=== PATIENT | female | born 1995 | race Caucasian/White ===

== ENCOUNTER 2017-07-16 23:16 | Emergency (ER) | payer BC ==
[~2017-07-16] VITALS: Ht 157.5 cm; Wt 81.8 kg
[2017-07-16 23:44] VITALS: Ht 157.5 cm; Wt 81.8 kg
[2017-07-17 00:02] LABS: APPEARANCE CLEAR (CLEAR); BILIRUBIN NEGATIVE (NEGATIVE); COLOR YELLOW (YELLOW); GLUCOSE NEGATIVE (NEGATIVE); HCG URINE NEGATIVE (NEGATIVE); KETONE SMALL mg/dL (NEGATIVE); NITRITE NEGATIVE (NEGATIVE); PROTEIN NEGATIVE (NEGATIVE); SPECIFIC GRAVITY 1.015 (1.005-1.020); UROBILINOGEN NORMAL (NORMAL)
[2017-07-17] MEDS ORDERED: IBUPROFEN800 MG PO (01:20)
[2017-07-17] MEDS ORDERED: FLAGYL500 MG PO (01:20)
[2017-07-17 01:43] VITALS: BP 122/74
== END 2017-07-17 01:43 | disposition home or self-care (01) ==
LOC: D.ER 23:16
PROVIDERS: Emergency Medicine
DX: R10.2 Pelvic and perineal pain (principal); M25.50 Pain in unspecified joint; R10.9 Unspecified abdominal pain; V43.62XA Car passenger injured in collision with other type car in traffic accident, initial encounter; Y93.89 Activity, other specified; Y92.410 Unspecified street and highway as the place of occurrence of the external cause

== ENCOUNTER 2018-01-27 20:54 | Emergency (ER) | payer BC ==
[~2018-01-27] VITALS: Ht 157.5 cm; Wt 81.8 kg
[~2018-01-27 20:54] MED LIST: FLAGYL500 MG PO; IBUPROFEN800 MG PO
[2018-01-27 21:21] VITALS: Ht 157.5 cm; Wt 81.8 kg
[2018-01-27 22:29] LABS: BASOPHILS 0.2 % (0-2); EOSINOPHILS 1.4 % (0-7); HEMATOCRIT 37.7 % (36.0-48.0); HEMOGLOBIN 12.6 g/dL (12-16); IMMATURE GRANULOCYTES 0.1 % (0-5); LYMPHOCYTES 11.7 % (15-50); MCH 30.4 pg (26.0-34.0); MCHC 33.4 g/dL (31.0-37.0); MCV 91.1 fL (80.0-100.0); MEAN PLATELET VOLUME 11.1 fL (7.4-10.4); MONOCYTES 19.9 % (2-11); NEUTROPHILS 66.7 % (40-80); PLATELET COUNT 188 10x3/uL (130-400); RBC 4.14 10x6/uL (4.00-5.40); RDW 13.6 % (11.5-14.5); WBC 9.5 10x3/uL (4.8-10.8)
[2018-01-27 22:42] LABS: ALBUMIN 3.2 g/dL (3.4-5.0); ALKALINE PHOSPHATASE 54 U/L (46-116); ALT (SGPT) 11 U/L (10-68); BILIRUBIN - TOTAL 0.23 mg/dL (0.2-1.3); CALC OSMOLALITY 276 mosm/kg (275-300); CALCIUM 8.6 mg/dL (8.5-10.1); CARBON DIOXIDE 23.9 mmol/L (21.0-32.0); CHLORIDE - SERUM 103 mmol/L (98-107); CREATININE - SERUM 0.7 mg/dL (0.6-1.3); GLUCOSE 95 mg/dL (74-106); POTASSIUM - SERUM 3.7 mmol/L (3.5-5.1); PROTEIN - SERUM 7.6 g/dL (6.4-8.2); SODIUM 139 mmol/L (136-145); UREA NITROGEN 11 mg/dL (7-18); eGFR NON AFRICAN AMERICAN > 90 mL/min (90-120)
[2018-01-28] MEDS ORDERED: HYDROCODON-ACE1 EAC7 PO (00:35)
[2018-01-28] MEDS ORDERED: BACTRIM DS1 TAB PO (00:35)
[2018-01-28 01:00] VITALS: BP 120/72
== END 2018-01-28 01:00 | disposition home or self-care (01) ==
LOC: D.ER 20:54
PROVIDERS: Family Medicine
DX: I82.491 Acute embolism and thrombosis of other specified deep vein of right lower extremity (principal); L03.115 Cellulitis of right lower limb; M79.661 Pain in right lower leg

== ENCOUNTER 2018-06-05 15:59 | Inpatient (IN) | payer MEDICAID ==
[~2018-06-05 15:59] MED LIST changes: +BACTRIM DS1 TAB PO; +HYDROCODON-ACE1 EAC7 PO
[2018-06-05 16:45] LABS: BASOPHILS 0.1 % (0-2); EOSINOPHILS 0 % (0-7); HEMATOCRIT 36.1 % (36.0-48.0); HEMOGLOBIN 12.1 g/dL (12-16); IMMATURE GRANULOCYTES 0.3 % (0-5); LYMPHOCYTES 7.1 % (15-50); MCH 30.2 pg (26.0-34.0); MCHC 33.5 g/dL (31.0-37.0); MEAN PLATELET VOLUME 10.8 fL (7.4-10.4); MONOCYTES 8.2 % (2-11); NEUTROPHILS 84.3 % (40-80); PLATELET COUNT 152 10x3/uL (130-400); RBC 4.01 10x6/uL (4.00-5.40); RDW 14.4 % (11.5-14.5)
[2018-06-05 16:54] LABS: APTT 28.6 SECONDS (22.8-39.4); INR 1.18 (0.85-1.17); PROTIME 14.5 SECONDS (11.6-15.0)
[2018-06-05 16:55] LABS: D-DIMER-QUANTITATIVE 0.53 ug/mLFEU (0.20-0.54)
[2018-06-05 17:10] LABS: ALBUMIN 3.2 g/dL (3.4-5.0); ALKALINE PHOSPHATASE 54 U/L (46-116); ALT (SGPT) 17 U/L (10-68); BILIRUBIN - TOTAL 0.38 mg/dL (0.2-1.3); CALC OSMOLALITY 264 mosm/kg (275-300); CALCIUM 8.8 mg/dL (8.5-10.1); CARBON DIOXIDE 23.5 mmol/L (21.0-32.0); CHLORIDE - SERUM 97 mmol/L (98-107); GLUCOSE 115 mg/dL (74-106); POTASSIUM - SERUM 3.1 mmol/L (3.5-5.1); PROTEIN - SERUM 7.6 g/dL (6.4-8.2); SODIUM 132 mmol/L (136-145); UREA NITROGEN 10 mg/dL (7-18); eGFR NON AFRICAN AMERICAN 73 mL/min (90-120)
[2018-06-05 17:25] LABS: CKMB 0.1 U/L (0.0-3.6); CREATINE KINASE 84 UL (21-215)
[2018-06-05 17:27] LABS: TROPONIN-I < 0.017 ng/mL (0.000-0.060)
[2018-06-05 18:30] LABS: APPEARANCE CLEAR (CLEAR); BILIRUBIN NEGATIVE (NEGATIVE); COLOR YELLOW (YELLOW); EPITHELIAL CELLS 0-5 /hpf (0-5); GLUCOSE NEGATIVE (NEGATIVE); KETONE NEGATIVE (NEGATIVE); NITRITE NEGATIVE (NEGATIVE); PROTEIN TRACE mg/dL (NEGATIVE); RED CELLS - URINE RARE /hpf (0-5); SPECIFIC GRAVITY 1.015 (1.005-1.020); UROBILINOGEN NORMAL (NORMAL); WHITE CELLS - URINE NSEEN /hpf (0-5)
--- NOTE | 2018-06-05 20:00 | NUR ---
Zosyn 3.375 mg IVPB started by Kecia Eastman RN
--- NOTE | 2018-06-05 20:49 | NUR ---
RECEIVED PT TO UNIT. FAMILY AND BOYFRIEND AT BEDSIDE. RIGHT FOOT SWOLLEN AND RED. BLISTER NOTED TO BOTTOM OF FOOT. STATES PAIN "SHOOTS UP" TO GROIN AREA. IV TO THE LEFT UPPER ARM. ANSWERS APPROPRIATELY. DENIES NEEDS AT THIS TIME.
[2018-06-06] VITALS: BP 101/59
[2018-06-06 00:50] VITALS: BP 101/59
--- NOTE | 2018-06-06 01:16 | NUR ---
I have reviewed this patient and I concur with the Shift Assessment completed by the Licensed Practical Nurse today this shift.
--- NOTE | 2018-06-06 04:25 | NUR ---
ORAL TEMPERATURE 103. REMOVED BLANKETS. APPLIED ICE PACK BEHIND NECK AND TO SIDE. ADMINISTERED TYLENOL ORDERED. DENIES FURTHER NEEDS AT THIS TIME.
[2018-06-06 05:00] VITALS: BP 106/45
[2018-06-06 06:19] LABS: BASOPHILS 0.1 % (0-2); EOSINOPHILS 0 % (0-7); HEMATOCRIT 30.8 % (36.0-48.0); HEMOGLOBIN 10.1 g/dL (12-16); IMMATURE GRANULOCYTES 0.3 % (0-5); LYMPHOCYTES 4.7 % (15-50); MCH 29.4 pg (26.0-34.0); MCHC 32.8 g/dL (31.0-37.0); MCV 89.8 fL (80.0-100.0); MEAN PLATELET VOLUME 10.7 fL (7.4-10.4); MONOCYTES 8.9 % (2-11); PLATELET COUNT 133 10x3/uL (130-400); RBC 3.43 10x6/uL (4.00-5.40); RDW 14.6 % (11.5-14.5); WBC 11.9 10x3/uL (4.8-10.8)
[2018-06-06 06:34] LABS: CALC OSMOLALITY 272 mosm/kg (275-300); CARBON DIOXIDE 24.5 mmol/L (21.0-32.0); CHLORIDE - SERUM 104 mmol/L (98-107); CREATININE - SERUM 0.8 mg/dL (0.6-1.3); GLUCOSE 113 mg/dL (74-106); POTASSIUM - SERUM 3.4 mmol/L (3.5-5.1); SODIUM 137 mmol/L (136-145); eGFR NON AFRICAN AMERICAN > 90 mL/min (90-120)
[2018-06-06 06:38] LABS: UREA NITROGEN 7 mg/dL (7-18)
--- NOTE | 2018-06-06 07:30 | NUR ---
PATIENT ALERT AND ORIENTED THIS MORNING. IV TO LEFT UPPER ARM INFUSING. STATES THAT SHE HAS SOME PAIN AT IV SITE BUT IV SITE APPEARS CLEAR. BOYFRIEND AT BEDSIDE. PATIENT STATES THAT SHE DID NOT SLEEP WELL LAST NIGHT. WILL CONTINUE TO MONITOR. CALL LIGHT WITHIN REACH.
[2018-06-06 08:09] VITALS: BP 104/46
--- NOTE | 2018-06-06 10:30 | NUR ---
REFUSED TO EAT BREAKFAST.STATES SHE HAS NO APPITITE. RIGHT LEG/FOOT RED, SWOLLEN AND WARM TO TOUCH. TEMP 100.7. PRN TYLENOL GIVEN. ALSO COMPLAINED OF NAUSEA AND PRN ZOFRAN WAS GIVEN. MOM AT BEDSIDE. ASSISTING PATIENT UP TO BATHROOM NEEDED. CALL LIGHT WITHIN REACH. WILL CONTINUE TO MONITOR.
--- NOTE | 2018-06-06 11:15 | NUR ---
C/O OF PAIN TO IV SITE AND TO LEG. MEDICATED WITH PRN DILADID. PATIENT STATES IT HURTS WHEN FLUSHES ARE DONE SO FLUSHES DONE VERY SLOWLY. STATES NAUSEA IS BETTER AT THIS TIME.
--- NOTE | 2018-06-06 12:21 | NUR ---
PATIENT RESTING QUIETLY AT THIS TIME WITH MOM AT BEDSIDE. DILAUDID HAD GOOD EFFECT. WILL CONTINUE TO MONITOR.
--- NOTE | 2018-06-06 15:28 | MORECARE ---
CASE MANAGEMENT DISCHARGE SUMMARY PATIENT: KASSANDRA BOOKER UNIT: [id number] ADM DATE: 06/05/18 AGE: 23 : 95 SEX: F ROOM/BED: D.1202 AUTHOR: FELA JONES PHYSICIAN: REFERRING PHYSICIAN: CAMERON FAGAN MD DATE OF SERVICE: 06/06/18 Discharge Plan Patient Name: KASSANDRA BOOKER Facility: [facility]:[place] : 1995 Planned Disposition: Home Anticipated Discharge Date: Discharge Date: Expected LOS: Initial Reviewer: IRMA Initial Review Date: 06/06/2018 Generated: 06/06/18 4:28 pm DCPIA - Discharge Planning Initial Assessment Updated by IRMA: Carine Dinero on 06/06/18 3:26 pm * Is the patient Alert and Oriented? Yes * How many steps to enter\exit or inside your home? * PCP needs one * Pharmacy [facility] * Preadmission Environment Home with Family * ADLs Independent * Equipment None * Verbal permission to speak to the caregivers and representatives has been obtained from the patient. N/A * Community resources currently utilized None * Additional services required to return to the preadmission environment? No * Can the patient safely return to the preadmission environment? Yes * Has this patient been hospitalized within the prior 30 days at any hospital? No Patient Name: KASSANDRA BOOKER Page [id number] at 1528 All edits/amendments must be made on the electronic document DICTATION DATE: 06/06/18 1527 GROUNDS FOREMAN: KULDEEP 06/06/18 1527 RPT#: [id number] DC DATE: STATUS: ADM IN [facility] [address] [place] [address] END OF REPORT
--- NOTE | 2018-06-06 15:36 | MORECARE ---
CASE MANAGEMENT DISCHARGE SUMMARY PATIENT: KASSANDRA BOOKER UNIT: [id number] ADM DATE: 06/05/18 AGE: 23 : 95 SEX: F ROOM/BED: D.1202 AUTHOR: KAREN,DOC PHYSICIAN: REFERRING PHYSICIAN: CAMERON FAGAN MD DATE OF SERVICE: 06/06/18 Discharge Plan Patient Name: KASSANDRA BOOKER Facility: [facility]:[place] : 1995 Planned Disposition: Home Anticipated Discharge Date: Discharge Date: Expected LOS: Initial Reviewer: [email or web address] Initial Review Date: 06/06/2018 Generated: 06/06/18 4:36 pm Comments DCP- Discharge Planning Updated by [email or web address]: Carine Dinero on 06/06/18 2:[address] Patient Name: KASSANDRA BOOKER Admission Status: ER Accout number: [id number] Admission Date: 06-05-2018 : 1995 Admission Diagnosis: Attending: CAMERON FAGAN Current LOS: 1 Anticipated DC Date: Planned Disposition: Home Primary Insurance: MEDICAID [place] PEND[place] Discharge Planning Comments: CM met with patient about discharge planning. CM explained CM role and verbal consent was given to do dc assessment. CM educated on Home Health, DME and rehab services that are available. Patient states/her discharge plan is to return to home with Boy Friend . States home environment is safe for discharge. Denies any discharge planning needs at this time. States BF or mon will drive her home upon discharge. CM will continue to follow and assist as needed with discharge planning needs. Pt does not have PCP needs one and wants to stay with a [facility] Diesel Power Mechanic: Carine Dinero DCPIA - Discharge Planning Initial Assessment Updated by [email or web address]: Carine Dinero on 06/06/18 3:26 pm * Is the patient Alert and Oriented? Yes * How many steps to enter\exit or inside your home? * PCP needs one * Pharmacy [facility] * Preadmission Environment Home with Family * ADLs Independent * Equipment None * Verbal permission to speak to the caregivers and representatives has been obtained from the patient. N/A * Community resources currently utilized None * Additional services required to return to the preadmission environment? No * Can the patient safely return to the preadmission environment? Yes * Has this patient been hospitalized within the prior 30 days at any hospital? No Last DP export: 06/06/18 2:28 p Patient Name: KASSANDRA BOOKER Page [phone] at 1536 All edits/amendments must be made on the electronic document DICTATION DATE: 06/06/181535 IMMIGRATION SERVICES OFFICER: KULDEEP 06/06/181535 RPT#: [id number] DC DATE: STATUS: ADM IN [facility] [address] [place] [address] END OF REPORT
[2018-06-06 17:38] VITALS: BP 116/62
--- NOTE | 2018-06-06 18:48 | NUR ---
PATIENT SLEPT MOST OF THE AFTERNOON. REQUESTED PAIN MEDICATION AT 16:30. DILADID 1MG GIVEN WITH GOOD RESULTS. DID NOT EAT SUPPER DUE TO NO APPITITE. IV SITE PINK AND SWOLLEN. STOPPED ANTIBIOTIC INFUSION.
--- NOTE | 2018-06-06 20:01 | NUR ---
PT HARD STICK, NO IV, CAN'T ADMINISTER ZOSYN. CALLED ER NURSE AND SHE SAID SHE IS BUSY, AND WILL COME TO START PT'S IV LATER.
[2018-06-06 20:51] VITALS: BP 117/54
--- NOTE | 2018-06-06 22:15 | NUR ---
ROUNDING ON THE PATIENT, INTRODUCTION MADE. PATIENT ASKING WHEN SHE WILL GET AN IV STARTED, (ER STAFF EXPECTED TO COME TO START THE IV PER NATASHA MORENO). 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 PATIENT HAS HER RIGHT LEG ELEVATED ON PILLOWS, THE LEG AND FOOT ARE SWOLLEN AND RED WITH SOME BRUISING NOTED ON THE LATERAL SIDE OF THE FOOT.
[2018-06-07 01:00] VITALS: BP 128/64
--- NOTE | 2018-06-07 02:14 | NUR ---
CHANGED DILAUDID BACK TO Q4HRP, BECAUSE IT SHOULD BE PUT IT IN FOR THE OTHER PATIENT.
[2018-06-07 05:46] VITALS: BP 142/72
[2018-06-07 06:35] LABS: BASOPHILS 0.1 % (0-2); EOSINOPHILS 0.6 % (0-7); HEMATOCRIT 30.7 % (36.0-48.0); IMMATURE GRANULOCYTES 0.2 % (0-5); LYMPHOCYTES 7.8 % (15-50); MCH 29.6 pg (26.0-34.0); MCHC 32.6 g/dL (31.0-37.0); MCV 90.8 fL (80.0-100.0); MEAN PLATELET VOLUME 11.9 fL (7.4-10.4); MONOCYTES 13.3 % (2-11); PLATELET COUNT 130 10x3/uL (130-400); RBC 3.38 10x6/uL (4.00-5.40); RDW 14.4 % (11.5-14.5)
[2018-06-07 06:43] LABS: WBC 8.1 10x3/uL (4.8-10.8)
[2018-06-07 06:51] LABS: CALC OSMOLALITY 268 mosm/kg (275-300); CALCIUM 8.1 mg/dL (8.5-10.1); CARBON DIOXIDE 27.7 mmol/L (21.0-32.0); CHLORIDE - SERUM 101 mmol/L (98-107); CREATININE - SERUM 0.8 mg/dL (0.6-1.3); GLUCOSE 97 mg/dL (74-106); MAGNESIUM - SERUM 1.9 mg/dL (1.8-2.4); SODIUM 136 mmol/L (136-145); eGFR NON AFRICAN AMERICAN > 90 mL/min (90-120)
[2018-06-07 06:52] LABS: UREA NITROGEN 4 mg/dL (7-18)
--- NOTE | 2018-06-07 07:38 | NUR ---
REPORT RECEIVED. WILL CONTINUE WITH POC. PT CURRENTLY RESTING LYING SEMI FOWLERS. CALL LIGHT W/I REACH. FAMILY AT BEDSIDE. RR EVEN AND UNLABORED ON RA. NS INFUSING @KVO VIA R.HAND PIV. NO S/S OF DISTRESS NOTED. PT DENIES ANY NEEDS AT THIS TIME. WILL CTM.
[2018-06-07 08:00] VITALS: BP 119/65
--- NOTE | 2018-06-07 10:44 | NUR ---
PREVIOUS PIV INFILTRATED. REMOVED PIV WITH CATHETER TIP FULLY INTACT. INITIATED NEW PIV TO THE RIGHT AC. 22GA X1 ATTEMPT. PT TOLERATED WELL. FLUSHED PIV WITH 10CC NS TO CONFIRM PATENCY. NS INFUSING @KVO VIA R.AC PIV. WILL CTM.
[2018-06-07 12:00] VITALS: BP 110/64
[2018-06-07 12:55] VITALS: BMI 31.8
[2018-06-07 16:00] VITALS: BP 114/62
--- NOTE | 2018-06-07 16:25 | NUR ---
ALERT AND ORIENTED X4. RESTING IN BED. FAMILY AT BEDSIDE. IV INFUSING ORDERED. AGREE WITH TAXATION AGENT ASSESSMENT. NATASHA WONG RESUMES PLAN OF CARE.
[2018-06-07 19:00] VITALS: BP 124/69
--- NOTE | 2018-06-07 19:26 | NUR ---
PATIENT IS RESTING IN HER BED. GUEST AT BEDSIDE. BED IS DOWN LOW WITH SIDE RAILS UP X2. CALL LIGHT IS IN REACH.
[2018-06-07 19:32] LABS: % SATURATION 10 % (15-55); IRON 22 ug/dl (35-150); TOTAL IRON BIND CAPACITY 201 ug/dl (260-445); UNSAT IRON BIND CAPACITY 179 ug/dl (150-375)
[2018-06-08 01:20] VITALS: BP 107/60
[2018-06-08 06:57] LABS: BASOPHILS 0.1 % (0-2); EOSINOPHILS 1.6 % (0-7); HEMATOCRIT 32.7 % (36.0-48.0); HEMOGLOBIN 10.6 g/dL (12-16); IMMATURE GRANULOCYTES 0.4 % (0-5); LYMPHOCYTES 15.1 % (15-50); MCH 29.3 pg (26.0-34.0); MCHC 32.4 g/dL (31.0-37.0); MCV 90.3 fL (80.0-100.0); MEAN PLATELET VOLUME 11.8 fL (7.4-10.4); MONOCYTES 15.6 % (2-11); NEUTROPHILS 67.2 % (40-80); RBC 3.62 10x6/uL (4.00-5.40); RDW 14.3 % (11.5-14.5); WBC 6.8 10x3/uL (4.8-10.8)
[2018-06-08 07:09] LABS: PLATELET COUNT 169 10x3/uL (130-400)
[2018-06-08 07:13] LABS: CALCIUM 8.3 mg/dL (8.5-10.1); CARBON DIOXIDE 28.1 mmol/L (21.0-32.0); CHLORIDE - SERUM 106 mmol/L (98-107); CREATININE - SERUM 0.6 mg/dL (0.6-1.3); GLUCOSE 81 mg/dL (74-106); SODIUM 142 mmol/L (136-145); VANCOMYCIN - TROUGH 2.3 ug/mL (10.0-20.0); eGFR NON AFRICAN AMERICAN > 90 mL/min (90-120)
[2018-06-08 07:35] LABS: CALC OSMOLALITY 278 mosm/kg (275-300); UREA NITROGEN 3 mg/dL (7-18)
[2018-06-08 07:36] LABS: MAGNESIUM - SERUM 2.4 mg/dL (1.8-2.4); POTASSIUM - SERUM 3.8 mmol/L (3.5-5.1)
[2018-06-08 07:47] LABS: C-REACTIVE PROTEIN 20.6 mg/dL (0.0-0.9)
[2018-06-08 08:02] LABS: ERYTHROCYTE SEDIMENTATION RATE 78 mm/hr (0-20)
[2018-06-08 08:31] VITALS: BP 118/79
--- NOTE | 2018-06-08 12:15 | NUR ---
PT RESTING IN BED. NO SIGNS OF DISTRESS. IV TO RIGHT AC PATENT NO REDNESS OR TENDERNESS. FOOT SWOLLEN AND RED. COMPLAINS OF PAIN. MEDICATIONS GIVEN. DENIES ANY FUTHER NEED AT THIS TIME. CALL LIGHT IN REACH. BED LOW POSITION. FAMILY AT BEDSIDE.
[2018-06-08 12:30] VITALS: BP 110/63
[2018-06-08 16:15] VITALS: BP 110/63
--- NOTE | 2018-06-08 16:18 | NUR ---
CONCRETE MIXER NOTE- PT RESTING IN BED.NO SIGNS OF DISTRESS.IV TO RIGHT FORARM PATENT NO REDNESS. COMPLAINS OF PAIN. MEDICATION GIVEN. DENIES ANY FURTHER NEED AT THIS TIME.
[2018-06-08 20:00] VITALS: BP 118/68
--- NOTE | 2018-06-08 20:00 | NUR ---
PATIENT RECEIVED LAYING IN BED. RIGHT LEG ELEVATED. ASSESSMENT & VITAL SIGNS DONE. IV PORT RIGHT AC. BED LOW. FAMILY IN ROOM. NO C/O PAIN OR DISTRESS. CALL LIGHT WITHIN REACH. WILL CONTINUE TO MONITOR.
[2018-06-09] VITALS: BP 113/77
[2018-06-09 04:15] VITALS: BP 109/62
[2018-06-09 07:49] LABS: BASOPHILS 0.2 % (0-2); EOSINOPHILS 2.7 % (0-7); HEMATOCRIT 33.4 % (36.0-48.0); HEMOGLOBIN 11.1 g/dL (12-16); IMMATURE GRANULOCYTES 0.6 % (0-5); LYMPHOCYTES 15.9 % (15-50); MCH 29.8 pg (26.0-34.0); MCHC 33.2 g/dL (31.0-37.0); MCV 89.5 fL (80.0-100.0); MEAN PLATELET VOLUME 11.4 fL (7.4-10.4); MONOCYTES 14.4 % (2-11); NEUTROPHILS 66.2 % (40-80); RBC 3.73 10x6/uL (4.00-5.40); RDW 14.3 % (11.5-14.5); WBC 6.6 10x3/uL (4.8-10.8)
[2018-06-09 08:00] LABS: PLATELET COUNT 208 10x3/uL (130-400)
[2018-06-09 08:05] LABS: CALC OSMOLALITY 274 mosm/kg (275-300); CALCIUM 8.9 mg/dL (8.5-10.1); CARBON DIOXIDE 27.4 mmol/L (21.0-32.0); CHLORIDE - SERUM 102 mmol/L (98-107); CREATININE - SERUM 0.6 mg/dL (0.6-1.3); GLUCOSE 99 mg/dL (74-106); MAGNESIUM - SERUM 2.4 mg/dL (1.8-2.4); POTASSIUM - SERUM 3.4 mmol/L (3.5-5.1); SODIUM 139 mmol/L (136-145); eGFR NON AFRICAN AMERICAN > 90 mL/min (90-120)
[2018-06-09 08:06] LABS: UREA NITROGEN 5 mg/dL (7-18)
[2018-06-09 09:38] VITALS: BP 106/63
[2018-06-09 13:17] VITALS: BP 134/78
--- NOTE | 2018-06-09 13:20 | NUR ---
THE PATIENT WAS LYING IN BED WHEN STAF ENTERED HER ROOM. BE DIN TH ELOW POSITION WITH SIDERAILS X2 AND CALL LIGHT WITHIN REACH. THE PATIENT DEMONSTRATES APPROPRIATE USE OF A CALL LIGHT. THE PATIENT APPEARS COMFORTABLE AND HAS NO QUESTIONS OR CONCERNS AT THIS TIME.
[2018-06-09 15:11] LABS: FOLATE (FOLIC ACID) - SERUM 17.7 ng/mL (>3.0)
[2018-06-09 16:13] VITALS: BP 97/56
[2018-06-10] VITALS: BP 129/58
[2018-06-10 04:30] VITALS: BP 104/56
[2018-06-10 07:07] LABS: BASOPHILS 0.2 % (0-2); EOSINOPHILS 4.5 % (0-7); HEMATOCRIT 35.9 % (36.0-48.0); HEMOGLOBIN 11.5 g/dL (12-16); IMMATURE GRANULOCYTES 1.3 % (0-5); LYMPHOCYTES 22.6 % (15-50); MCH 29.3 pg (26.0-34.0); MEAN PLATELET VOLUME 10.8 fL (7.4-10.4); MONOCYTES 14.9 % (2-11); NEUTROPHILS 56.5 % (40-80); PLATELET COUNT 241 10x3/uL (130-400); RBC 3.92 10x6/uL (4.00-5.40); RDW 14.4 % (11.5-14.5); WBC 5.4 10x3/uL (4.8-10.8)
[2018-06-10 07:12] LABS: CALC OSMOLALITY 276 mosm/kg (275-300); CALCIUM 8.8 mg/dL (8.5-10.1); CARBON DIOXIDE 29.4 mmol/L (21.0-32.0); CHLORIDE - SERUM 103 mmol/L (98-107); CREATININE - SERUM 0.6 mg/dL (0.6-1.3); GLUCOSE 94 mg/dL (74-106); MAGNESIUM - SERUM 2.1 mg/dL (1.8-2.4); POTASSIUM - SERUM 3.9 mmol/L (3.5-5.1); SODIUM 140 mmol/L (136-145); eGFR NON AFRICAN AMERICAN > 90 mL/min (90-120)
[2018-06-10 07:13] LABS: UREA NITROGEN 8 mg/dL (7-18)
[2018-06-10 07:33] LABS: MCV 91.6 fL (80.0-100.0)
--- NOTE | 2018-06-10 07:35 | NUR ---
RESTING QUIETLY WITH EYES CLOSED. RESP EVEN,NONLABORED. FAMILY AT BEDSIDE.
--- NOTE | 2018-06-10 08:00 | NUR ---
ASSESSMENT COMPLETE. SL TO R AC. REDNESS AND SWELLING NOTED TO RLE. DENIES ANY NEEDS AT THIS TIME. FAMILY AT BEDSIDE.
[2018-06-10 09:39] VITALS: BP 111/71
--- NOTE | 2018-06-10 12:00 | NUR ---
NO CHANGES NOTED AT THIS TIME.
[2018-06-10 12:53] VITALS: BP 116/74
--- NOTE | 2018-06-10 12:58 | NUR ---
Nutrition Follow Up: Pt stated that she has had some nausea and continues with a very poor appetite. She said that she has tried to eat and just feels nauseated. RD provided pt with alternate menu and encouraged pt to make staff aware of food preferences. RD encouraged pt to increase po intake as able. Diet: Regular PO Intake: 18% meal avg BM: 06/07/18 Wt stable Meds and labs reviewed Rec continue current diet. Rec consider an appetite stimulant. RD following.
--- NOTE | 2018-06-10 15:40 | NUR ---
NORCO GIVEN FOR C/O ANKLE PAIN. FAMILY AT BEDSIDE. DENIES ANY FURTHER NEEDS AT THIS TIME.
[2018-06-10 16:57] VITALS: BP 115/69
[2018-06-10 19:31] VITALS: BP 124/83
--- NOTE | 2018-06-10 19:31 | NUR ---
GREETED PATIENT AND INTRODUCED MYSELF. PATIENT IS LAYING IN BED IN SUPINE POSITION. DENIES ANY NEEDS AT THIS TIME. CALL LIGHT IN REACH.
--- NOTE | 2018-06-11 01:57 | NUR ---
PATIENT AWAKE LAYING IN BED WATCHING TV. FAMILY MEMBER ASLEEP IN CHAIR AT BEDSIDE. PATIENT DENIES ANY NEEDS AT THIS TIME. CALL LIGHT IN REACH.
[2018-06-11 04:06] VITALS: BP 126/54
[2018-06-11 07:33] LABS: BASOPHILS 0.3 % (0-2); EOSINOPHILS 3.2 % (0-7); HEMATOCRIT 36.1 % (36.0-48.0); HEMOGLOBIN 11.6 g/dL (12-16); IMMATURE GRANULOCYTES 2.3 % (0-5); LYMPHOCYTES 20.8 % (15-50); MCH 29.1 pg (26.0-34.0); MCHC 32.1 g/dL (31.0-37.0); MCV 90.7 fL (80.0-100.0); MEAN PLATELET VOLUME 10.5 fL (7.4-10.4); MONOCYTES 14.5 % (2-11); NEUTROPHILS 58.9 % (40-80); PLATELET COUNT 262 10x3/uL (130-400); RBC 3.98 10x6/uL (4.00-5.40); RDW 14.2 % (11.5-14.5)
[2018-06-11 07:43] LABS: CALC OSMOLALITY 276 mosm/kg (275-300); CALCIUM 8.9 mg/dL (8.5-10.1); CARBON DIOXIDE 25.6 mmol/L (21.0-32.0); CHLORIDE - SERUM 104 mmol/L (98-107); CREATININE - SERUM 0.5 mg/dL (0.6-1.3); GLUCOSE 100 mg/dL (74-106); MAGNESIUM - SERUM 2.1 mg/dL (1.8-2.4); SODIUM 139 mmol/L (136-145); UREA NITROGEN 10 mg/dL (7-18); eGFR NON AFRICAN AMERICAN > 90 mL/min (90-120)
[2018-06-11 08:00] VITALS: BP 95/44
--- NOTE | 2018-06-11 08:16 | NUR ---
THE PATIENT APPEARED TO BE SLEEPIN BUT EASILY AWOKE WHEN STAFF ENTERED HER ROOM. BED IS IN THE LOW POSITION WITH SIDERAILS X2 AND CALL LIGHT WITHIN REACH. PATIENT WAS EDUCATED TO CALL NURSE WITH ANY QUESTIONS OR CONCERNS. PATIENT DEMONSTRATE DUNDERSTANDING VIA TEACHBACK METHOD. THE PATIENT APPEARS COMFORTABLE WITH NO QUESTIONS OR CONCERNS AT THIS TIME.
[2018-06-11] MEDS ORDERED: KEFLEX500 MG PO (10:09)
--- NOTE | 2018-06-11 11:30 | MORECARE ---
CASE MANAGEMENT DISCHARGE SUMMARY PATIENT: KASSANDRA BOOKER UNIT: [id number] ADM DATE: 06/05/18 AGE: 23 : 95 SEX: F ROOM/BED: D.1202 AUTHOR: KAREN,DOC PHYSICIAN: REFERRING PHYSICIAN: CAMERON FAGAN MD DATE OF SERVICE: 06/11/18 Discharge Plan Patient Name: KASSANDRA BOOKER Facility: [facility]:[place] : 1995 Planned Disposition: Home Anticipated Discharge Date: 06/11/18 Discharge Date: Expected LOS: 6 Initial Reviewer: [email or web address] Initial Review Date: 06/06/2018 Generated: 06/11/18 12:30 pm Comments DCP- Discharge Planning Updated by [email or web address]: Kimi Alves on 06/11/18 10:[address] Patient Name: KASSANDRA BOOKER Encounter No: [id number] : 1995 Primary Insurance: MEDICAID [place] PENDING Anticipated DC Date: 06-11-2018 Planned Disposition: Home External Planned Provider: : DCP follow-up note: Patient in agreement with discharge plan. No changes to plan. Case management will follow and assist as needed. Kimi Alves DCP- Discharge Planning Updated by [email or web address]: Carine Dinero on 06/06/18 2:[address] Patient Name: KASSANDRA BOOKER Admission Status: ER Accout number: [id number] Admission Date: 06-05-2018 : 1995 Admission Diagnosis: Attending: CAMERON FAGAN Current LOS: 1 Anticipated DC Date: Planned Disposition: Home Primary Insurance: MEDICAID [place] PENDING Discharge Planning Comments: CM met with patient about discharge planning. CM explained CM role and verbal consent was given to do dc assessment. CM educated on Home Health, DME and rehab services that are available. Patient states/her discharge plan is to return to home with Boy Friend . States home environment is safe for discharge. Denies any discharge planning needs at this time. States BF or mon will drive her home upon discharge. CM will continue to follow and assist as needed with discharge planning needs. Pt does not have PCP needs one and wants to stay with a [facility] Polish Compounder: Carine Dinero DCPIA - Discharge Planning Initial Assessment Updated by [email or web address]: Carine Dinero on 06/06/18 3:26 pm * Is the patient Alert and Oriented? Yes * How many steps to enter\exit or inside your home? * PCP needs one * Pharmacy [facility] * Preadmission Environment Home with Family * ADLs Independent * Equipment None * Verbal permission to speak to the caregivers and representatives has been obtained from the patient. N/A * Community resources currently utilized None * Additional services required to return to the preadmission environment? No * Can the patient safely return to the preadmission environment? Yes * Has this patient been hospitalized within the prior 30 days at any hospital? No Last DP export: 06/06/18 2:36 p Patient Name: KASSANDRA BOOKER Page 52277 at 1130 All edits/amendments must be made on the electronic document DICTATION DATE: 06/11/181128 TAX APPRAISER: KULDEEP 06/11/18 112 RPT#: [id number] DC DATE: STATUS: ADM IN [facility] [address] [place] [address] END OF REPORT
[2018-06-11 12:00] VITALS: BP 99/61
--- NOTE | 2018-06-12 07:39 | MORECARE ---
CASE MANAGEMENT DISCHARGE SUMMARY PATIENT: KASSANDRA BOOKER UNIT: [id number] ADM DATE: 06/05/18 AGE: 23 : 95 SEX: F ROOM/BED: D.1202 AUTHOR: KAREN,DOC PHYSICIAN: REFERRING PHYSICIAN: CAMERON FAGAN MD DATE OF SERVICE: 06/12/18 Discharge Plan Patient Name: KASSANDRA BOOKER Facility: [facility]:[place] : 1995 Planned Disposition: Home Anticipated Discharge Date: 06/11/18 Discharge Date: 06/11/2018 Expected LOS: 6 Initial Reviewer: [email or web address] Initial Review Date: 06/06/2018 Generated: 06/12/18 8:38 am Comments DCP- Discharge Planning Updated by [email or web address]: Kimi Alves on 06/11/18 10:[address] Patient Name: KASSANDRA BOOKER Encounter No: [id number] : 1995 Primary Insurance: MEDICAID [place] PENDING Anticipated DC Date: 06-11-2018 Planned Disposition: Home External Planned Provider: : DCP follow-up note: Patient in agreement with discharge plan. No changes to plan. Case management will follow and assist as needed. Kimi Alves DCP- Discharge Planning Updated by [email or web address]: Carine Dinero on 06/06/18 2:[address] Patient Name: KASSANDRA BOOKER Admission Status: ER Accout number: [id number] Admission Date: 06-05-2018 : 1995 Admission Diagnosis: Attending: CAMERON FAGAN Current LOS: 1 Anticipated DC Date: Planned Disposition: Home Primary Insurance: MEDICAID [place] PENDING Discharge Planning Comments: CM met with patient about discharge planning. CM explained CM role and verbal consent was given to do dc assessment. CM educated on Home Health, DME and rehab services that are available. Patient states/her discharge plan is to return to home with Boy Friend . States home environment is safe for discharge. Denies any discharge planning needs at this time. States BF or mon will drive her home upon discharge. CM will continue to follow and assist as needed with discharge planning needs. Pt does not have PCP needs one and wants to stay with a [facility] Acupuncture Physician: Carine Dinero DCPIA - Discharge Planning Initial Assessment Updated by [email or web address]: Carine Dinero on 06/06/18 3:26 pm * Is the patient Alert and Oriented? Yes * How many steps to enter\exit or inside your home? * PCP needs one * Pharmacy [facility] * Preadmission Environment Home with Family * ADLs Independent * Equipment None * Verbal permission to speak to the caregivers and representatives has been obtained from the patient. N/A * Community resources currently utilized None * Additional services required to return to the preadmission environment? No * Can the patient safely return to the preadmission environment? Yes * Has this patient been hospitalized within the prior 30 days at any hospital? No Last DP export: 06/11/18 10:30 am Patient Name: KASSANDRA BOOKER Page 53886 at 0739 All edits/amendments must be made on the electronic document DICTATION DATE: 06/12/18737 LOCK TECHNICIAN: KULDEEP 06/12/18737 RPT#: [id number] DC DATE:06/11/18 STATUS: DIS IN [facility] [address] [place] [address] END OF REPORT
== END 2018-06-11 15:30 | disposition home or self-care (01) | DRG 872 ==
LOC: D.ER 15:59 → D.EDHOLD 18:42 → D.M3 18:42
PROVIDERS: Family Medicine; Family Medicine Adult Medicine; Student in an Organized Health Care Education/Training Program; ADMIT Internal Medicine Nephrology; ATTEND Internal Medicine Nephrology
DX: A41.9 Sepsis, unspecified organism (principal); L03.115 Cellulitis of right lower limb; E87.1 Hypo-osmolality and hyponatremia; E87.6 Hypokalemia; D50.9 Iron deficiency anemia, unspecified